=== PATIENT | male | born 1975 | race Caucasian/White ===

== ENCOUNTER → 2017-06-10 | Outpatient (CLI) | payer OTHER ==
[~2017-06-10] MED LIST: BENADRYL 50MG C50 MG PO; BUSPIRONE HCL10 MG PO; GABAPENTIN300 M1 PO; HYDROCODONE BIT1 T45 PO; LEVOTHYROXINE0.05 MG NG; LEXAPRO 10 MG T10 MG PO; LIPITOR40 MG PO; OXYCODONE 5MG TA5 MG PO; SIMVASTATIN20 MG PO; SYNTHROID 0.10.15 MG PO; ZYRTEC ALLERGY10 MG PO
--- NOTE | 2017-06-10 11:30 | RADIOLOGY REPORT PS360 ---
MRI-C-SPINE W/O, MRI-3D RENDERING/MYELOGRAM HISTORY: Left-sided neck pain and shoulder pain radiating to the elbow with bilateral arm numbness CERVICAL NEURALGIA ORDERING PHYSICIAN: Romario Damian MD PATIENT AGE: 42 years COMPARISON: 06/18/2015 TECHNIQUE: Standard multiplanar multiecho sequences are performed without contrast. 3-D MIP and myelographic images are also rendered and reviewed FINDINGS: There is normal alignment. There is slight reversal of cervical lordosis which may be due to patient positioning or muscle spasm. The craniocervical junction has an unremarkable appearance. C2-C3: Unremarkable. C3-C4: Minimal left foraminal narrowing from uncovertebral hypertrophy. C4-C5: Unremarkable. C5-C6: Degenerative disc disease with bulging disc. There is a small broad-based disc osteophyte complex in the right paracentral region causing mild anterior indentation upon the cord and moderate right-sided lateral recess and severe right-sided foraminal narrowing. Small uncovertebral disc osteophyte complex is present on the left with severe left foraminal narrowing. These findings are not significantly changed C6-C7: There is a broad-based right paracentral and foraminal disc osteophyte complex causing severe right-sided foraminal narrowing. Small left uncovertebral disc osteophyte complex is present with moderate to severe left-sided foraminal narrowing. These findings are not significant changed. C7-T1: Unremarkable. IMPRESSION: 1. Degenerative disc disease C5-C6 with bulging disc. There is a small broad-based disc osteophyte complex in the right paracentral region causing mild anterior indentation upon the cord and moderate right-sided lateral recess and severe right-sided foraminal narrowing. Small uncovertebral disc osteophyte complex is present on the left with severe left foraminal narrowing. These findings are not significantly changed 2. Broad-based right paracentral and foraminal disc osteophyte complex C6-C7 causing severe right-sided foraminal narrowing. Small left uncovertebral disc osteophyte complex is present with moderate to severe left-sided foraminal narrowing. These findings are not significantly changed. 3. Reversal of cervical lordosis which may be due to patient positioning or muscle spasm
== END ==
LOC: RAD 09:40
DX: M54.12 Radiculopathy, cervical region (principal)